=== PATIENT | female | born 1935 | race Caucasian/White ===

== ENCOUNTER 2018-02-11 17:29 | Emergency (ER) | payer MEDICARE, OTHER ==
[~2018-02-11] VITALS: Ht 165.1 cm; Wt 81.7 kg
[~2018-02-11 17:29] MED LIST: ALPR.5 PO; AMLO10 PO; AMLO5 PO; ASCO1ER PO; AZIT500; Amaryl1 MG PO; BUPR100; BUPR150ER PO; BUPROPION; BUTASPCAFT; BUTONI; BUTORPHANOL; CALCAVITD PO; CALCAVITDA; CETI10; CITRACAL; CITRACAL PO; CLIN300 PO; CLON1; CLON1 PO; CODBUTACEC; CODBUTACEC PO; DIPATR PO; DOXE0.5; DOXE2.5 PO; DULO30 PO; ENOX60I; ENOX60I SC; FISH1000; FISH1000 PO; FLAX PO; GLIM2; GLIM2 PO; HECTORAL PO; HYDACE5; HYDACE5 PO; IRBE150 PO; LEVLIO2; LEVSOD125 PO; LEVSOD150 PO; LISI10; LISI20; LORA1 PO; LORA2 PO; MECL25 PO; META800 PO; METF500; METPHE5 PO; MOMENI; MULVITA PO; MULVITB&C PO; MULVITMIND PO; OMEGA Q PLUS PO; PERSERVISION PO; PHENTERMINE; PIOG15; PROC10 PO; PROM25 PO; ROSU10TA PO; RXHYDACE PO; RXLORA1 PO; TOCO400; TOCO400 PO; TOPI100; TRAM50 PO; TRAZ50 PO; UBID100; VITB100; VITB100 PO; WARF1 PO; WARF3; WARF5; WARF5 PO; WARF6; WARF6 PO; WARF7.5; ZOLP5 PO; [UNRECOGNIZED DRUG - CODE]; [UNRECOGNIZED DRUG - OTHER]; [UNRECOGNIZED DRUG - OTHER]; [UNRECOGNIZED DRUG - OTHER] PO; [UNRECOGNIZED DRUG - OTHER] PO
[2018-02-11 18:13] LABS: International Normalized Ratio 2.9; Prothrombin Time Results 28.1 Sec (9.7-11.5)
== END 2018-02-11 18:21 | disposition home or self-care (01) ==
LOC: ER 17:29
PROVIDERS: Physician Assistant
DX: R79.1 Abnormal coagulation profile (principal); I10 Essential (primary) hypertension; Z88.1 Allergy status to other antibiotic agents; Z88.8 Allergy status to other drugs, medicaments and biological substances; Z88.5 Allergy status to narcotic agent; Z91.09 Other allergy status, other than to drugs and biological substances; Z79.899 Other long term (current) drug therapy; Z79.01 Long term (current) use of anticoagulants
CPT/HCPCS: 85610; 99283

== ENCOUNTER 2018-05-05 00:34 | Day surgery (SDC) | payer MEDICARE, OTHER ==
[2018-05-05] MEDS ORDERED: ACET325 PO (15:04)
[2018-05-05] MEDS ORDERED: Advair Hfa 230-12 GM (15:05)
[2018-05-05] MEDS ORDERED: Hydroxyzine HCl50 MG PO (15:08)
[2018-05-05] MEDS ORDERED: HYDR1TAB94 PO (15:09)
== END 2018-05-05 14:18 | disposition home or self-care (01) ==
LOC: ATC 00:34
DX: I82.409 Acute embolism and thrombosis of unspecified deep veins of unspecified lower extremity (principal)
CPT/HCPCS: 96372; J1650

== ENCOUNTER 2018-05-06 14:22 | Day surgery (SDC) | payer MEDICARE, OTHER ==
[~2018-05-06 14:22] MED LIST changes: +ACET325 PO; +Advair Hfa 230-12 GM; +HYDR1TAB94 PO; +Hydroxyzine HCl50 MG PO
== END 2018-05-06 14:45 | disposition home or self-care (01) ==
LOC: ATC 14:22
DX: I82.409 Acute embolism and thrombosis of unspecified deep veins of unspecified lower extremity (principal)
CPT/HCPCS: 96372; J1650

== ENCOUNTER 2018-05-07 01:08 | Day surgery (SDC) | payer MEDICARE, OTHER | END 2018-05-07 14:05 | disposition home or self-care (01) | LOC: ATC 01:08 | DX: I82.409 Acute embolism and thrombosis of unspecified deep veins of unspecified lower extremity (principal) | CPT/HCPCS: 96372; J1650 ==

== ENCOUNTER 2018-05-08 00:17 | Day surgery (SDC) | payer MEDICARE, OTHER | END 2018-05-08 14:16 | disposition home or self-care (01) | LOC: ATC 00:17 | DX: I82.409 Acute embolism and thrombosis of unspecified deep veins of unspecified lower extremity (principal) | CPT/HCPCS: 96372; J1650 ==

== ENCOUNTER 2018-05-10 00:35 | Day surgery (SDC) | payer MEDICARE, OTHER | END 2018-05-10 22:46 | disposition home or self-care (01) | LOC: ATC 00:35 | DX: I82.409 Acute embolism and thrombosis of unspecified deep veins of unspecified lower extremity (principal) | CPT/HCPCS: J1650 ==

== ENCOUNTER 2018-05-11 00:28 | Day surgery (SDC) | payer MEDICARE, OTHER | END 2018-05-11 15:18 | disposition home or self-care (01) | LOC: ATC 00:28 | DX: I82.403 Acute embolism and thrombosis of unspecified deep veins of lower extremity, bilateral (principal) | CPT/HCPCS: 96372; J1650 ==

== ENCOUNTER 2018-05-12 09:59 | Day surgery (SDC) | payer MEDICARE, OTHER | END 2018-05-12 22:41 | disposition home or self-care (01) | LOC: ATC 09:59 | DX: I82.409 Acute embolism and thrombosis of unspecified deep veins of unspecified lower extremity (principal); G89.4 Chronic pain syndrome; G43.709 Chronic migraine without aura, not intractable, without status migrainosus; E11.22 Type 2 diabetes mellitus with diabetic chronic kidney disease; N18.3 Chronic kidney disease, stage 3 (moderate); Z78.0 Asymptomatic menopausal state | CPT/HCPCS: 36416; 85610; 96372; J1650 ==

== ENCOUNTER 2018-05-13 00:27 | Day surgery (SDC) | payer MEDICARE, OTHER ==
[2018-05-14] MEDS ORDERED: WARF4 PO (15:22)
== END 2018-05-13 15:45 | disposition home or self-care (01) ==
LOC: ATC 00:27
DX: I82.409 Acute embolism and thrombosis of unspecified deep veins of unspecified lower extremity (principal)
CPT/HCPCS: 36416; 85610; 96372; J1650

== ENCOUNTER 2018-05-14 14:36 | Day surgery (SDC) | payer MEDICARE, OTHER ==
[2018-05-14] MEDS ORDERED: WARF4 PO (15:22)
== END 2018-05-14 15:32 | disposition home or self-care (01) ==
LOC: ATC 14:36
DX: I82.403 Acute embolism and thrombosis of unspecified deep veins of lower extremity, bilateral (principal); Z79.01 Long term (current) use of anticoagulants
CPT/HCPCS: 36416; 85610; 96372; J1650

== ENCOUNTER 2018-05-15 00:02 | Day surgery (SDC) | payer MEDICARE, OTHER ==
[~2018-05-15 00:02] MED LIST changes: +WARF4 PO
== END 2018-05-15 22:39 | disposition home or self-care (01) ==
LOC: ATC 00:02
DX: I82.409 Acute embolism and thrombosis of unspecified deep veins of unspecified lower extremity (principal)
CPT/HCPCS: 36416; 85610; 96372; J1650

== ENCOUNTER 2022-03-22 12:22 | Emergency (ER) | payer MEDICARE, OTHER ==
[~2022-03-22] VITALS: Ht 157.5 cm; Wt 79.8 kg
== END 2022-03-22 15:41 | disposition home or self-care (01) ==
LOC: ER 12:22
DX: M17.12 Unilateral primary osteoarthritis, left knee (principal); S83.92XA Sprain of unspecified site of left knee, initial encounter; X58.XXXA Exposure to other specified factors, initial encounter; I10 Essential (primary) hypertension; Z79.899 Other long term (current) drug therapy; Z79.01 Long term (current) use of anticoagulants; Z88.1 Allergy status to other antibiotic agents; Z88.5 Allergy status to narcotic agent; Z88.0 Allergy status to penicillin; Z88.8 Allergy status to other drugs, medicaments and biological substances
CPT/HCPCS: 73562-LT; A9270

== ENCOUNTER → 2022-04-19 | Outpatient (CLI) | payer MEDICARE, OTHER ==
[2022-04-19 19:19] LABS: Campylobacter Sp Not Detected (NOT DETECT); Cryptosporidium Not Detected (NOT DETECT); Cyclospora Cayetanensis Not Detected (NOT DETECT); E. Coli O157 Not Detected (NOT DETECT); Entamoeba Histolytica Not Detected (NOT DETECT); Enteroaggregative E. coli-EAEC Not Detected (NOT DETECT); Enteropathogenic E. coli-EPEC Detected (NOT DETECT); Enterotoxigenic E. coli-ETEC Not Detected (NOT DETECT); Giardia Lamblia Not Detected (NOT DETECT); Plesiomonas Shigelloides Not Detected (NOT DETECT); Salmonella Sp Not Detected (NOT DETECT); Shiga Toxin-prod E. coli-STEC Not Detected (NOT DETECT); Shigella/Enteroin E. coli-EIEC Not Detected (NOT DETECT); Vibrio Cholerae Not Detected (NOT DETECT); Vibrio Sp Not Detected (NOT DETECT); Yersinia Enterocolitica Not Detected (NOT DETECT)
[2022-04-19 19:20] LABS: Adenovirus F 40/41 Not Detected (NOT DETECT); Astrovirus Not Detected (NOT DETECT); Norovirus GI/GII Not Detected (NOT DETECT); Rotavirus A Not Detected (NOT DETECT); Sapovirus Not Detected (NOT DETECT)
== END | disposition home or self-care (01) ==
LOC: LAB SHORT 15:00
PROVIDERS: Nurse Practitioner
DX: K52.1 Toxic gastroenteritis and colitis (principal); R19.7 Diarrhea, unspecified
CPT/HCPCS: 87507

== ENCOUNTER 2022-07-29 08:29 | Emergency (ER) | payer MEDICARE, OTHER ==
[~2022-07-29] VITALS: Ht 157.5 cm; Wt 78.0 kg
[2022-07-29 10:46] LABS: BASOPHILS ABSOLUTE AUTO 0.03 K/mm3 (0.00-0.23); BASOPHILS PERCENT AUTO 1 % (0-2); EOSINOPHILS ABSOLUTE AUTO 0.68 K/mm3 (0.00-0.68); EOSINOPHILS PERCENT AUTO 10 % (0-6); Hematocrit 31.9 % (33.0-51.0); Hemoglobin 10.3 g/dL (11.5-16.0); IMMATURE GRAN ABSOLUTE AUTO 0.01 K/mm3 (0.00-0.10); IMMATURE GRAN PERCENT AUTO 0 % (0-1); LYMPHOCYTES ABSOLUTE AUTO 1.45 K/mm3 (0.84-5.20); LYMPHOCYTES PERCENT AUTO 22 % (21-46); MONOCYTES ABSOLUTE AUTO 0.79 K/mm3 (0.16-1.47); MONOCYTES PERCENT AUTO 12 % (4-13); Mean Corpuscular HGB 31.8 pg (26.0-34.0); Mean Corpuscular HGB Conc 32.3 g/dL (31.5-36.5); Mean Corpuscular Volume 99 fL (80-100); NEUTROPHILS PERCENT AUTO 55 % (41-73); Platelet Count 169 K/mm3 (150-400); RDW Coefficient Variation 15.3 % (11.7-14.2); RDW Standard Deviation 55.1 fL (35.1-46.3); Red Blood Cell Count 3.24 M/mm3 (3.80-5.20); White Blood Cell Count 6.66 K/mm3 (4.00-11.30)
[2022-07-29 11:08] LABS: International Normalized Ratio 1.38; Prothrombin Time Results 14.2 Sec (9.7-11.5)
[2022-07-29 11:19] LABS: Albumin, Blood 3.3 g/dL (3.4-5.0); Bilirubin, Total 0.3 mg/dL (0.1-1.0); Bun/Creatinine Ratio 13.8 (12.0-20.0); Calcium, Blood 8.4 mg/dL (8.5-10.1); Creatinine, Blood 2.76 mg/dL (0.40-1.00); Globulin, Blood 3.3 g/dL (2.2-4.0); Potassium, Blood 4.3 mmol/L (3.5-5.5); Total Protein, Blood 6.6 g/dL (6.4-8.2)
== END 2022-07-29 13:12 | disposition home or self-care (01) ==
LOC: ER 08:29
PROVIDERS: Emergency Medicine
DX: S09.90XA Unspecified injury of head, initial encounter (principal); M54.2 Cervicalgia; R79.1 Abnormal coagulation profile; I12.9 Hypertensive chronic kidney disease with stage 1 through stage 4 chronic kidney disease, or unspecified chronic kidney disease; N18.9 Chronic kidney disease, unspecified; G43.909 Migraine, unspecified, not intractable, without status migrainosus; F17.210 Nicotine dependence, cigarettes, uncomplicated; Z88.1 Allergy status to other antibiotic agents; Z88.0 Allergy status to penicillin; Z88.8 Allergy status to other drugs, medicaments and biological substances; Z91.041 Radiographic dye allergy status; Z88.5 Allergy status to narcotic agent; Z79.899 Other long term (current) drug therapy; Z79.01 Long term (current) use of anticoagulants; Z86.718 Personal history of other venous thrombosis and embolism
CPT/HCPCS: 36415; 70450; 72125; 80053; 85025; 85610; A9270; J1885; J2765

== ENCOUNTER 2022-08-16 12:10 | Emergency (ER) | payer MEDICARE, OTHER ==
[~2022-08-16] VITALS: Ht 157.5 cm; Wt 79.8 kg
[2022-08-16 13:50] LABS: Influenza B, PCR NEGATIVE (NEGATIVE); Resp Syncytial Virus, PCR NEGATIVE (NEGATIVE); SARS-Cov-2 (COVID-19) PCR, MMC NEGATIVE (NEGATIVE)
[2022-08-16 13:55] LABS: BASOPHILS ABSOLUTE AUTO 0.03 K/mm3 (0.00-0.23); BASOPHILS PERCENT AUTO 1 % (0-2); EOSINOPHILS ABSOLUTE AUTO 0.08 K/mm3 (0.00-0.68); EOSINOPHILS PERCENT AUTO 2 % (0-6); Hematocrit 35.8 % (33.0-51.0); Hemoglobin 11.6 g/dL (11.5-16.0); IMMATURE GRAN ABSOLUTE AUTO 0.03 K/mm3 (0.00-0.10); IMMATURE GRAN PERCENT AUTO 1 % (0-1); LYMPHOCYTES PERCENT AUTO 31 % (21-46); MONOCYTES ABSOLUTE AUTO 0.46 K/mm3 (0.16-1.47); MONOCYTES PERCENT AUTO 8 % (4-13); Mean Corpuscular HGB 31.2 pg (26.0-34.0); Mean Corpuscular HGB Conc 32.4 g/dL (31.5-36.5); Mean Corpuscular Volume 96 fL (80-100); Mean Platelet Volume 10.6 fL (9.1-12.4); NEUTROPHILS ABSOLUTE AUTO 3.17 K/mm3 (1.96-9.15); NEUTROPHILS PERCENT AUTO 58 % (41-73); Platelet Count 234 K/mm3 (150-400); RDW Coefficient Variation 15.1 % (11.7-14.2); RDW Standard Deviation 53.1 fL (35.1-46.3); Red Blood Cell Count 3.72 M/mm3 (3.80-5.20); White Blood Cell Count 5.47 K/mm3 (4.00-11.30)
[2022-08-16 13:55] LABS: Influenza A, PCR POSITIVE (NEGATIVE)
[2022-08-16] MEDS ORDERED: ALBU90OI INH (14:09)
[2022-08-16] MEDS ORDERED: PRED20 PO (14:09)
[2022-08-16] MEDS ORDERED: BENZ100A PO (14:09)
[2022-08-16 14:28] LABS: Albumin, Blood 3.3 g/dL (3.4-5.0); Bilirubin, Total 0.8 mg/dL (0.1-1.0); Calcium, Blood 9.1 mg/dL (8.5-10.1); Creatinine, Blood 2.08 mg/dL (0.40-1.00); Globulin, Blood 3.4 g/dL (2.2-4.0); Potassium, Blood 4.7 mmol/L (3.5-5.5); Total Protein, Blood 6.7 g/dL (6.4-8.2)
== END 2022-08-16 15:36 | disposition home or self-care (01) ==
LOC: ER 12:10
PROVIDERS: Emergency Medicine
DX: J10.1 Influenza due to other identified influenza virus with other respiratory manifestations (principal); I12.9 Hypertensive chronic kidney disease with stage 1 through stage 4 chronic kidney disease, or unspecified chronic kidney disease; N18.9 Chronic kidney disease, unspecified; Z88.0 Allergy status to penicillin; Z88.1 Allergy status to other antibiotic agents; Z88.5 Allergy status to narcotic agent; Z88.8 Allergy status to other drugs, medicaments and biological substances; Z79.899 Other long term (current) drug therapy; Z20.822 Contact with and (suspected) exposure to COVID-19
CPT/HCPCS: 0241U; 36415; 71045; 80053; 85025; 94644; 94664